=== PATIENT | male | born 1950 | race Caucasian/White ===

== ENCOUNTER 2019-07-05 12:19 | Observation (INO) ==
[2019-07-05 12:54] LABS: Basophils % 0.5 % (0.0-0.8); Eosinophils # 0.1 10*3/uL (0.0-0.87); Eosinophils % 0.7 % (0.00-10.9); Hematocrit 46.8 VOL% (42.0-52.0); Hemoglobin 15.7 GM/DL (14.0-18.0); Immature Granulocytes % 0.7 %; Immature Granulocytes Absolute 0.05 #; Lymphocytes # 1.7 10*3/uL (1.4-4.0); Lymphocytes % 22.4 % (21.2-54.2); Mean Corpuscular HGB Conc 33.5 GM/DL (32-36); Mean Corpuscular Volume 92.1 FL (87-102); Mean Platelet Volume 10.6 FL (9.6-12.0); Monocytes % 7.2 % (1.7-12.7); Neutrophils % 68.5 % (38.7-73.9); Platelet Count 158 T/CUMM (130-400); Red Blood Count 5.08 MC/CUMM (3.8-5.5); Red Cell Distribution Width 13.2 % (9.3-17.3); White Blood Count 7.6 T/CUMM (4-12)
[2019-07-05 12:59] LABS: PT Patient Result 10.4 SECS (9.6-12.2)
[2019-07-05 13:09] LABS: Calcium 9.3 MG/DL (8.5-10.1); Osmolality,Calculated 283.3 MOS/KG (273-304)
[2019-07-05] MEDS ORDERED: ENOXAPARIN 30 MG/0.3 ML SYRINGE SUBCUT STA (13:50)
[2019-07-05] MEDS ORDERED: ACETAMINOPHEN 325 MG TABLET PO PRN (13:51)
[2019-07-05] MEDS ORDERED: ONDANSETRON 4 MG/2 ML VIAL IV PRN (13:51)
[2019-07-05] MEDS ORDERED: ENOXAPARIN 100 MG/ML SYRINGE SUBCUT ONE (14:02)
[2019-07-05] MEDS ORDERED: NITROGLYCERIN SL 0.4 MG TABLET SL PRN (15:20)
[2019-07-05] MEDS: GABAPENTIN 600 MG TABLET PO SCH ×2 (16:45→21:02)
[2019-07-05] MEDS ORDERED: ATENOLOL 25 MG TABLET PO SCH (21:00)
[2019-07-05] MEDS: DOCUSATE SODIUM 100 MG CAPSULE PO SCH (21:01)
[2019-07-05] MEDS: TAMSULOSIN 0.4 MG CAPSULE PO SCH (21:02)
[2019-07-05] MEDS: ROSUVASTATIN 20 MG TABLET PO SCH (21:02)
[2019-07-05] MEDS: POTASSIUM CITRATE 10 MEQ TABLET PO SCH ×2 (21:06→21:22)
[2019-07-06 07:19] LABS: Risk Ratio 4.07; VLDL CHOLESTEROL 28.8 MG/DL
[2019-07-06] MEDS: metFORMIN 500 MG TABLET PO SCH (09:03)
[2019-07-06] MEDS: POTASSIUM CITRATE 10 MEQ TABLET PO SCH ×2 (09:03→21:16)
[2019-07-06] MEDS: ALLOPURINOL 300 MG TABLET PO SCH (09:03)
[2019-07-06] MEDS: GABAPENTIN 600 MG TABLET PO SCH ×4 (09:04→21:17)
[2019-07-06] MEDS: ASPIRIN EC 325 MG TABLET PO SCH (09:04)
[2019-07-06] MEDS: DOCUSATE SODIUM 100 MG CAPSULE PO SCH ×2 (09:04→21:17)
[2019-07-06] MEDS: PANTOPRAZOLE 40 MG TABLET PO SCH (09:05)
[2019-07-06] MEDS: ATENOLOL 25 MG TABLET PO SCH ×2 (09:05→21:16)
[2019-07-06] MEDS ORDERED: KETOROLAC 30 MG/1 ML VIAL IV ONE (09:27)
[2019-07-06] MEDS ORDERED: KETOROLAC 15 MG/1 ML VIAL IV ONE (10:44)
[2019-07-06] MEDS: ROSUVASTATIN 20 MG TABLET PO SCH (21:16)
[2019-07-06] MEDS: TAMSULOSIN 0.4 MG CAPSULE PO SCH (21:17)
[2019-07-07] MEDS: PANTOPRAZOLE 40 MG TABLET PO SCH (09:05)
[2019-07-07] MEDS: POTASSIUM CITRATE 10 MEQ TABLET PO SCH (09:05)
[2019-07-07] MEDS: metFORMIN 500 MG TABLET PO SCH (09:05)
[2019-07-07] MEDS: ALLOPURINOL 300 MG TABLET PO SCH (09:05)
[2019-07-07] MEDS: ASPIRIN EC 325 MG TABLET PO SCH (09:05)
[2019-07-07] MEDS: ATENOLOL 25 MG TABLET PO SCH (09:05)
[2019-07-07] MEDS: DOCUSATE SODIUM 100 MG CAPSULE PO SCH (09:05)
[2019-07-07] MEDS: GABAPENTIN 600 MG TABLET PO SCH ×2 (09:05→14:18)
[2019-07-07 12:14] VITALS: BP 112/65
== END 2019-07-07 14:05 | disposition home or self-care (01) ==
LOC: N.EDINP 12:19 → N.ED 12:19 → N.TELEN 14:11
PROVIDERS: ADMIT Internal Medicine; ATTEND Internal Medicine

== ENCOUNTER 2020-08-11 09:54 | Inpatient (IN) ==
[2020-08-11] MEDS ORDERED: ONDANSETRON 4 MG/2 ML VIAL IV PRN (11:49)
[2020-08-11] MEDS ORDERED: DEXTROSE 50% 25 GM/50 ML VIAL IV PRN (11:53)
[2020-08-11] MEDS ORDERED: GLUCAGON 1 MG VIAL IM PRN (11:53)
[2020-08-11 14:11] LABS: Basophils % 0.3 % (0.0-0.8); Eosinophils % 0.2 % (0.00-10.9); Hematocrit 47.4 VOL% (42.0-52.0); Hemoglobin 15.9 GM/DL (14.0-18.0); Immature Granulocytes % 0.5 %; Immature Granulocytes Absolute 0.03 #; Lymphocytes # 0.7 10*3/uL (1.4-4.0); Lymphocytes % 12.8 % (21.2-54.2); Mean Corpuscular HGB Conc 33.5 GM/DL (32-36); Mean Corpuscular Volume 93.3 FL (87-102); Mean Platelet Volume 10.9 FL (9.6-12.0); Monocytes % 12.2 % (1.7-12.7); Platelet Count 131 T/CUMM (130-400); Red Blood Count 5.08 MC/CUMM (3.8-5.5); Red Cell Distribution Width 13.6 % (9.3-17.3); White Blood Count 5.8 T/CUMM (4-12)
[2020-08-11 14:29] LABS: Albumin 3.3 G/DL (3.4-5.0); Bilirubin,Total 0.5 MG/DL (0.2-1.0); Total Protein 7.6 G/DL (6.4-8.3)
[2020-08-11] MEDS: ENOXAPARIN 40 MG/0.4 ML SYRINGE SUBCUT SCH (16:02)
[2020-08-11] MEDS: LEVOFLOXACIN 500 MG TABLET PO SCH (16:02)
[2020-08-11] MEDS: cefTRIAXone 1,000 MG in SYRINGE 1 EACH IV SCH (16:02)
[2020-08-11] MEDS: SODIUM CHLORIDE 0.9% 1,000 ML IV SCH ×2 (16:13→23:44)
[2020-08-11] MEDS: INSULIN LISPRO 100 UNIT/ML SUBCUT SCH (16:44)
[2020-08-11] MEDS: POTASSIUM CITRATE 10 MEQ TABLET PO SCH (17:44)
[2020-08-11] MEDS: GABAPENTIN 600 MG TABLET PO SCH ×2 (17:44→20:55)
[2020-08-11] MEDS: ACETAMINOPHEN 325 MG TABLET PO PRN (19:45)
[2020-08-11] MEDS: ROSUVASTATIN 20 MG TABLET PO SCH (20:55)
[2020-08-11] MEDS: DOCUSATE SODIUM 100 MG CAPSULE PO SCH (20:55)
[2020-08-11] MEDS: TAMSULOSIN 0.4 MG CAPSULE PO SCH (20:56)
[2020-08-11] MEDS: atenoloL 25 MG TABLET PO SCH (21:30)
[2020-08-12 06:36] LABS: Basophils % 0.4 % (0.0-0.8); Eosinophils % 0.5 % (0.00-10.9); Hematocrit 39.1 VOL% (42.0-52.0); Hemoglobin 13.1 GM/DL (14.0-18.0); Immature Granulocytes % 0.7 %; Immature Granulocytes Absolute 0.04 #; Lymphocytes # 1.5 10*3/uL (1.4-4.0); Lymphocytes % 26.1 % (21.2-54.2); Mean Corpuscular HGB Conc 33.5 GM/DL (32-36); Mean Corpuscular Volume 92.7 FL (87-102); Neutrophils % 55.3 % (38.7-73.9); Platelet Count 113 T/CUMM (130-400); Red Blood Count 4.22 MC/CUMM (3.8-5.5); Red Cell Distribution Width 13.8 % (9.3-17.3); White Blood Count 5.6 T/CUMM (4-12)
[2020-08-12 06:52] LABS: Calcium 8.2 MG/DL (8.5-10.1); Osmolality,Calculated 280.4 MOS/KG (273-304)
[2020-08-12 07:10] LABS: Band Neutrophils 6 % (0-10); Eosinophils 2 % (0-10); Lymphocytes 23 % (20-55); Platelet Estimate Decreased; Segmented Neutrophils 55 % (50-85); Total Cells Counted 100
[2020-08-12 07:11] LABS: Hypochromasia 1+; Microcytosis 1+; Ovalocytes Slight
[2020-08-12] MEDS: INSULIN LISPRO 100 UNIT/ML SUBCUT SCH ×2 (07:23→16:57)
[2020-08-12] MEDS: ASPIRIN EC 325 MG TABLET PO SCH (08:38)
[2020-08-12] MEDS: DOCUSATE SODIUM 100 MG CAPSULE PO SCH ×2 (08:38→20:41)
[2020-08-12] MEDS: POTASSIUM CITRATE 10 MEQ TABLET PO SCH ×2 (08:38→17:15)
[2020-08-12] MEDS: GABAPENTIN 600 MG TABLET PO SCH ×4 (08:39→20:41)
[2020-08-12] MEDS: atenoloL 25 MG TABLET PO SCH ×2 (08:39→21:34)
[2020-08-12] MEDS: FLUTICASONE 50 MCG NASAL SPRAY 16 GM BOTTLE BOTH NARES SCH (08:39)
[2020-08-12] MEDS: PANTOPRAZOLE 40 MG TABLET PO SCH (08:39)
[2020-08-12] MEDS: CYANOCOBALAMIN 500 MCG TABLET PO SCH (08:39)
[2020-08-12] MEDS: SODIUM CHLORIDE 0.9% 1,000 ML IV SCH ×2 (09:41→17:51)
[2020-08-12 09:46] LABS: Bilirubin,Urine Negative (Negative); Blood, Urine Moderate mg/dL (Negative); Glucose,Urine (UA) Negative (Negative); Ketones,Urine Negative (Negative); Mucus,Urine Occasional /LPF (Occasional); Nitrite,Urine Negative (Negative); Protein,Urine 30 MG/DL; RBC,Urine 21 /HPF (0-4); Squamous Epithelial Cell,Urine Occasional /HPF (0-10); Urine Appearance CLEAR (Clear); Urine Color Yellow (Yellow); Urine Specific Gravity 1.014 (1.001-1.035); WBC,Urine 8 /HPF (0-6)
[2020-08-12] MEDS: ENOXAPARIN 40 MG/0.4 ML SYRINGE SUBCUT SCH (13:50)
[2020-08-12] MEDS: LEVOFLOXACIN 500 MG TABLET PO SCH (13:50)
[2020-08-12] MEDS: cefTRIAXone 1,000 MG in SYRINGE 1 EACH IV SCH (13:50)
[2020-08-12] MEDS: metFORMIN 500 MG TABLET PO SCH (17:15)
[2020-08-12] MEDS: ACETAMINOPHEN 325 MG TABLET PO PRN (19:21)
[2020-08-12] MEDS: TAMSULOSIN 0.4 MG CAPSULE PO SCH (20:40)
[2020-08-12] MEDS: ROSUVASTATIN 20 MG TABLET PO SCH (20:40)
[2020-08-13] MEDS: SODIUM CHLORIDE 0.9% 1,000 ML IV SCH ×4 (01:51→21:17)
[2020-08-13 05:32] LABS: Basophils % 0.6 % (0.0-0.8); Eosinophils # 0.1 10*3/uL (0.0-0.87); Hematocrit 39.9 VOL% (42.0-52.0); Hemoglobin 13.3 GM/DL (14.0-18.0); Immature Granulocytes % 1.1 %; Immature Granulocytes Absolute 0.06 #; Lymphocytes # 1.7 10*3/uL (1.4-4.0); Mean Corpuscular HGB Conc 33.3 GM/DL (32-36); Mean Corpuscular Volume 92.8 FL (87-102); Mean Platelet Volume 11.2 FL (9.6-12.0); Monocytes % 11.4 % (1.7-12.7); Neutrophils % 53.9 % (38.7-73.9); Platelet Count 120 T/CUMM (130-400); Red Cell Distribution Width 13.6 % (9.3-17.3); White Blood Count 5.5 T/CUMM (4-12)
[2020-08-13 05:51] LABS: Calcium 8.4 MG/DL (8.5-10.1); Osmolality,Calculated 280.3 MOS/KG (273-304)
[2020-08-13 06:13] LABS: Hypochromasia 1+; Platelet Estimate Adequate
[2020-08-13] MEDS: INSULIN LISPRO 100 UNIT/ML SUBCUT SCH ×2 (07:57→16:38)
[2020-08-13] MEDS: POTASSIUM CITRATE 10 MEQ TABLET PO SCH ×2 (09:59→16:41)
[2020-08-13] MEDS: ACETAMINOPHEN 325 MG TABLET PO PRN (09:59)
[2020-08-13] MEDS: ASPIRIN EC 325 MG TABLET PO SCH (09:59)
[2020-08-13] MEDS: metFORMIN 500 MG TABLET PO SCH ×2 (10:00→16:41)
[2020-08-13] MEDS: CYANOCOBALAMIN 500 MCG TABLET PO SCH (10:00)
[2020-08-13] MEDS: atenoloL 25 MG TABLET PO SCH ×3 (10:00→20:34)
[2020-08-13] MEDS: GABAPENTIN 600 MG TABLET PO SCH ×4 (10:00→20:33)
[2020-08-13] MEDS: PANTOPRAZOLE 40 MG TABLET PO SCH (10:00)
[2020-08-13] MEDS: DOCUSATE SODIUM 100 MG CAPSULE PO SCH ×2 (10:00→20:34)
[2020-08-13] MEDS: FLUTICASONE 50 MCG NASAL SPRAY 16 GM BOTTLE BOTH NARES SCH (10:01)
[2020-08-13] MEDS: LEVOFLOXACIN 500 MG TABLET PO SCH (14:57)
[2020-08-13] MEDS: ENOXAPARIN 40 MG/0.4 ML SYRINGE SUBCUT SCH (14:58)
[2020-08-13] MEDS: cefTRIAXone 1,000 MG in SYRINGE 1 EACH IV SCH (14:58)
[2020-08-13] MEDS: TAMSULOSIN 0.4 MG CAPSULE PO SCH (20:34)
[2020-08-13] MEDS: ROSUVASTATIN 20 MG TABLET PO SCH (20:34)
[2020-08-14] MEDS: SODIUM CHLORIDE 0.9% 1,000 ML IV SCH ×2 (05:09→14:45)
[2020-08-14] MEDS ORDERED: MAGNESIUM HYDROXIDE SUSP 30 ML UDCUP PO ONE (10:07)
[2020-08-14] MEDS: INSULIN LISPRO 100 UNIT/ML SUBCUT SCH ×2 (10:26→16:02)
[2020-08-14] MEDS: ASPIRIN EC 325 MG TABLET PO SCH (10:31)
[2020-08-14] MEDS: POTASSIUM CITRATE 10 MEQ TABLET PO SCH ×2 (10:31→16:05)
[2020-08-14] MEDS: FLUTICASONE 50 MCG NASAL SPRAY 16 GM BOTTLE BOTH NARES SCH (10:32)
[2020-08-14] MEDS: PANTOPRAZOLE 40 MG TABLET PO SCH (10:32)
[2020-08-14] MEDS: metFORMIN 500 MG TABLET PO SCH ×2 (10:32→16:05)
[2020-08-14] MEDS: DOCUSATE SODIUM 100 MG CAPSULE PO SCH ×2 (10:32→21:25)
[2020-08-14] MEDS: GABAPENTIN 600 MG TABLET PO SCH ×4 (10:32→21:25)
[2020-08-14] MEDS: CYANOCOBALAMIN 500 MCG TABLET PO SCH (10:32)
[2020-08-14] MEDS: atenoloL 25 MG TABLET PO SCH ×2 (10:33→21:02)
[2020-08-14] MEDS: LEVOFLOXACIN 500 MG TABLET PO SCH (14:17)
[2020-08-14] MEDS: ENOXAPARIN 40 MG/0.4 ML SYRINGE SUBCUT SCH (14:17)
[2020-08-14] MEDS: cefTRIAXone 1,000 MG in SYRINGE 1 EACH IV SCH (14:39)
[2020-08-14] MEDS: TAMSULOSIN 0.4 MG CAPSULE PO SCH (21:25)
[2020-08-14] MEDS: ROSUVASTATIN 20 MG TABLET PO SCH (21:25)
[2020-08-15 06:14] LABS: Basophils # 0.1 10*3/uL (0.0-0.2); Basophils % 0.7 % (0.0-0.8); Eosinophils # 0.1 10*3/uL (0.0-0.87); Eosinophils % 1.7 % (0.00-10.9); Hematocrit 37.6 VOL% (42.0-52.0); Hemoglobin 12.7 GM/DL (14.0-18.0); Immature Granulocytes % 1.9 %; Immature Granulocytes Absolute 0.14 #; Lymphocytes % 26.5 % (21.2-54.2); Mean Corpuscular HGB Conc 33.8 GM/DL (32-36); Mean Corpuscular Volume 91.9 FL (87-102); Mean Platelet Volume 10.7 FL (9.6-12.0); Monocytes % 7.1 % (1.7-12.7); Neutrophils % 62.1 % (38.7-73.9); Red Blood Count 4.09 MC/CUMM (3.8-5.5); Red Cell Distribution Width 13.4 % (9.3-17.3); White Blood Count 7.5 T/CUMM (4-12)
[2020-08-15 06:19] LABS: Platelet Count 152 T/CUMM (130-400)
[2020-08-15 06:56] LABS: Hypochromasia 1+; Microcytosis 1+
[2020-08-15 06:57] LABS: Platelet Estimate Adequate
[2020-08-15] MEDS: SODIUM CHLORIDE 0.9% 1,000 ML IV SCH ×2 (07:39→23:01)
[2020-08-15 07:47] LABS: Calcium 8.4 MG/DL (8.5-10.1); Osmolality,Calculated 277.4 MOS/KG (273-304)
[2020-08-15] MEDS: INSULIN LISPRO 100 UNIT/ML SUBCUT SCH ×2 (08:45→17:09)
[2020-08-15] MEDS: CYANOCOBALAMIN 500 MCG TABLET PO SCH (10:43)
[2020-08-15] MEDS: GABAPENTIN 600 MG TABLET PO SCH ×4 (10:43→20:50)
[2020-08-15] MEDS: ACETAMINOPHEN 325 MG TABLET PO PRN (10:43)
[2020-08-15] MEDS: MAGNESIUM CHLORIDE 64 MG TABLET PO SCH (10:44)
[2020-08-15] MEDS: DOCUSATE SODIUM 100 MG CAPSULE PO SCH ×2 (10:44→20:50)
[2020-08-15] MEDS: POTASSIUM CITRATE 10 MEQ TABLET PO SCH ×2 (10:44→16:35)
[2020-08-15] MEDS: ASPIRIN EC 325 MG TABLET PO SCH (10:44)
[2020-08-15] MEDS: PANTOPRAZOLE 40 MG TABLET PO SCH (10:44)
[2020-08-15] MEDS: FLUTICASONE 50 MCG NASAL SPRAY 16 GM BOTTLE BOTH NARES SCH (10:44)
[2020-08-15] MEDS: atenoloL 25 MG TABLET PO SCH ×2 (10:44→20:15)
[2020-08-15] MEDS: metFORMIN 500 MG TABLET PO SCH ×2 (10:47→16:35)
[2020-08-15] MEDS: cefTRIAXone 1,000 MG in SYRINGE 1 EACH IV SCH (14:32)
[2020-08-15] MEDS: ENOXAPARIN 40 MG/0.4 ML SYRINGE SUBCUT SCH (14:32)
[2020-08-15] MEDS: LEVOFLOXACIN 500 MG TABLET PO SCH (14:32)
[2020-08-15] MEDS: ROSUVASTATIN 20 MG TABLET PO SCH (20:50)
[2020-08-15] MEDS: TAMSULOSIN 0.4 MG CAPSULE PO SCH (20:50)
[2020-08-16 07:46] VITALS: BP 120/68
[2020-08-16] MEDS: INSULIN LISPRO 100 UNIT/ML SUBCUT SCH (08:47)
[2020-08-16] MEDS: metFORMIN 500 MG TABLET PO SCH (09:30)
[2020-08-16] MEDS: POTASSIUM CITRATE 10 MEQ TABLET PO SCH (09:30)
[2020-08-16] MEDS: atenoloL 25 MG TABLET PO SCH (09:31)
[2020-08-16] MEDS: FLUTICASONE 50 MCG NASAL SPRAY 16 GM BOTTLE BOTH NARES SCH (09:31)
[2020-08-16] MEDS: DOCUSATE SODIUM 100 MG CAPSULE PO SCH (09:31)
[2020-08-16] MEDS: GABAPENTIN 600 MG TABLET PO SCH (09:31)
[2020-08-16] MEDS: SODIUM CHLORIDE 0.9% 1,000 ML IV SCH (09:31)
[2020-08-16] MEDS: PANTOPRAZOLE 40 MG TABLET PO SCH (09:31)
[2020-08-16] MEDS: ASPIRIN EC 325 MG TABLET PO SCH (09:31)
[2020-08-16] MEDS: MAGNESIUM CHLORIDE 64 MG TABLET PO SCH (09:31)
[2020-08-16] MEDS: CYANOCOBALAMIN 500 MCG TABLET PO SCH (09:32)
== END 2020-08-16 11:20 | disposition home or self-care (01) | DRG 690 ==
LOC: N.3E 13:31
PROVIDERS: ADMIT Internal Medicine; ATTEND Internal Medicine